=== PATIENT | female | born 1985 | race Caucasian/White ===

== ENCOUNTER 2017-01-10 01:35 | Emergency (ER) | payer OTHER ==
--- NOTE | 2017-01-10 01:50 | PDOC ---
[id number] No Limitations - History of Present Illness Initial Comments: 01/10/17 02:47 Patient is a 31 year old female, , with no past significant medical history who presents to the ED with rash. Patient states that she initially developed itchiness and irritation at the edges of the C section incision site, she states that once she lifted one of the steri strips she noticed bumps under one of the strips. Patient notes that on Tuesday she developed the same rash to the upper stomach area. She notes that on Tuesday the rash developed on her hands. She spoke to her [employer] who stated that she should take benadryl and the reaction could be from delayed abx use. Patient states that she has introduced nuts in her diet and notes that after eating trail mix yesterday worsened her symptoms. She reports minimal relief with benadryl. SH: C section 1 week and ago, C section 3 year ago <Haydee Knight - Last Filed: 01/10/17 02:46> <Sherron Clemons - Last Filed: 01/15/17 21:51> - General Stated Complaint: RASH Time Seen by Provider: 01/10/17 01:50 Past History <Haydee Knight - Last Filed: 01/10/17 02:46> <Sherron Clemons - Last Filed: 01/15/17 21:51> - Past Medical History Allergies/Adverse Reactions: Allergies Allergy/AdvReac Type Severity Reaction Status Date / Time peanut Allergy Verified 01/10/17 02:51 Home Medications: Ambulatory Orders Prednisone [Deltasone] 3 tab PO DAILY #12 tablet 01/10/17 Ranitidine HCl [Zantac] 300 mg PO DAILY #10 tablet 01/10/17 Review of Systems - Review of Systems Able to Perform ROS?: Yes Comments:: 01/10/17 02:47 GENERAL/CONSTITUTIONAL: No fever or chills. No weakness. HEAD, EYES, EARS, NOSE AND THROAT: No change in vision. No ear pain or discharge. No sore throat. CARDIOVASCULAR: No chest pain or shortness of breath. RESPIRATORY: No cough, wheezing, or hemoptysis. GASTROINTESTINAL: No nausea, vomiting, diarrhea or constipation. GENITOURINARY: No dysuria, frequency, or change in urination. MUSCULOSKELETAL: No joint or muscle swelling or pain. No neck or back pain. SKIN: +rash NEUROLOGIC: No headache, vertigo, loss of consciousness, or change in strength/ sensation. ENDOCRINE: No increased thirst. No abnormal weight change. HEMATOLOGIC/LYMPHATIC: No anemia, easy bleeding, or history of blood clots. ALLERGIC/IMMUNOLOGIC: No hives or skin allergy. <Haydee Knight - Last Filed: 01/10/17 02:46> *Physical Exam - Vital Signs Last Vital Signs Temp Pulse Resp BP Pulse Ox 98.7 F 75 20 110/73 100 01/10/17 02:00 01/10/17 02:00 01/10/17 02:00 01/10/17 02:00 01/10/17 02:00 - Physical Exam Comments: 01/10/17 02:47 GENERAL: Awake, alert, and fully oriented, in no acute distress HEAD: No signs of trauma EYES: PERRLA, EOMI, sclera anicteric, conjunctiva clear ENT: Auricles normal inspection, hearing grossly normal, nares patent, oropharynx clear without exudates. Moist mucosa NECK: Normal ROM, supple, no lymphadenopathy, JVD, or masses LUNGS: Breath sounds equal, clear to auscultation bilaterally. No wheezes, and no crackles HEART: Regular rate and rhythm, normal S1 and S2, no murmurs, rubs or gallops ABDOMEN: Soft, nontender, normoactive bowel sounds. No guarding, no rebound. No masses EXTREMITIES: Normal range of motion, no edema. No clubbing or cyanosis. No cords, erythema, or tenderness NEUROLOGICAL: Cranial nerves II through XII grossly intact. Normal speech, normal gait SKIN: +rash on hands, stomach, C section incision site. Warm, Dry, normal turgor , no lesions noted. <Haydee Knight - Last Filed: 01/10/17 02:46> Medical Decision Making - Medical Decision Making 01/15/17 21:48 patient comes with allergic reaction after eating trail mix that her gave her. Pt is breast feeding. We treated her with steroids and benadryl and zantac. Home with the same. Pt advised about the meds and their affect on . Pt will bottle feed, as her nipples have hives and are sore. She will follow with measurement supervisor and her PMD. <Sherron Clemosn - Last Filed: 01/15/17 21:51> *DC/Admit/Observation/Transfer - Attestations Scribe Attestion: 01/10/17 02:49 Documentation prepared by HARI Anaya, acting as medical dermatologist for Sherron Clemons MD. <Haydee Knight - Last Filed: 01/10/17 02:46> - Discharge Dispostion Admit: No <Sherron Clemons - Last Filed: 01/15/17 21:51> Diagnosis at time of Disposition: Anaphylactic reaction due to tree nuts and seeds - Discharge Dispostion Disposition: HOME Condition at time of disposition: Stable - Prescriptions Prescriptions: Prednisone [Deltasone] 3 tab PO DAILY #12 tablet Ranitidine HCl [Zantac] 300 mg PO DAILY #10 tablet - Patient Instructions Printed Discharge Instructions: DI for General Allergic Reactions, DI for Food Allergy
[2017-01-10 02:07] VITALS: TEMP 98.7; BMI 28.3
[2017-01-10] MEDS ORDERED: RANITIDINE HCL 150 MG TABLET (FP) PO ONE (02:46)
[2017-01-10] MEDS ORDERED: predniSONE 20 MG TABLET (UD) PO ONE (02:48)
[2017-01-10] MEDS ORDERED: predniSONE 20 MG TABLET (UD) ONE (02:52)
[2017-01-10] MEDS ORDERED: RANITIDINE HCL 150 MG TABLET (FP) ONE (02:53)
[2017-01-10 03:07] VITALS: BP 110/75; PULSE 65
[2017-01-10] MEDS ORDERED: diphenhydrAMINE HCL 25 MG CAPSULE (FP) PO ONE (03:11)
== END 2017-01-10 03:07 | disposition home or self-care (01) ==
LOC: JER 01:35
DX: T78.05XA Anaphylactic reaction due to tree nuts and seeds, initial encounter (principal)
CPT/HCPCS: 99281-25